=== PATIENT | female | born 1955 | race Caucasian/White ===

== ENCOUNTER → 2021-11-17 | Outpatient (CLI) | payer OTHER, MEDICARE ==
[~2021-11-17] MED LIST: CO-ENZYME Q-1010 MG PO; HYDROCHLOROTH12.5 M2 PO; LISINOPRIL2.5 MG PO; LUTEIN20 M1 PO; MILK THISTLE150 MG PO; MULTI VITAMIN1 EACH PO; POTASSIUM CHLO10 ME1 PO; VIT D3 PO; VITAMIN C500 M2 PO; VITAMIN E1000 UNIT PO
== END ==
LOC: LAB 10:05
PROVIDERS: ATTEND Student in an Organized Health Care Education/Training Program
DX: Z20.822 Contact with and (suspected) exposure to COVID-19 (principal)

== ENCOUNTER → 2021-11-18 | Outpatient (CLI) | payer OTHER, MEDICARE ==
[~2021-11-18] VITALS: Ht 172.7 cm; Wt 136.1 kg
--- NOTE | 2021-11-20 15:07 | PATH ---
[facility] [address] [place] [address] PATHOLOGY RPT PROCEDURE Name: MILANALLELY Room #: REG ASHLEY Cope.#: [id number] Admission: 11/18/21 Date of : 57 Discharge: Report #: [id number] Path Case #: [id number] [facility] Accession Number: [id number] . 01 Material submitted: . PART A: colon - ASCENDING COLON POLYP. Modifiers: ascending PART B: cecum - CECAL POLYP . 01 Clinical history: . COLONOSCOPY / HX OF POLYPS . 02 Diagnosis: A. Ascending colon polyp, polypectomy: - Tubular adenoma. - Negative for high-grade dysplasia or malignancy. . B. Cecal polyp, polypectomy: - Tubular adenoma. - Negative for high-grade dysplasia or malignancy. . (ANK:pako; 11/20/2021) MBSampson 11/20/2021 1300 Local . 02 Electronically signed: . Briana Saucedo MD, Pathologist NPI- [id number] . 01 Gross description: . A. The specimen is received in formalin, labeled "Nallely Zaragoza, ascending colon polyp". Received are 2 segments of pale lockett tissue measuring 0.2 and 0.3 cm in maximum dimensions. The specimen is entirely submitted in cassette A1. . B. The specimen is received in formalin, labeled "Nallely Zaragoza, cecal polyp". Received are 4 segments of pale lockett tissue ranging in size from 0.2-0.3 cm in maximum dimension. The specimen is entirely submitted in cassette B1. ([facility]; 11/19/2021) NRI/NRI 11/19/2021 1853 Local . 02 Pathologist provided ICD-10: D12.2, D12.0 . 02 CPT . 230334, 438309 Specimen Comment: A courtesy copy of this report has been sent to [phone], [id number] [id number] PATHOLOGY RPT PROCEDURE Name: NALLELY ZARAGOZA Room #: REG [facility]#: [id number] Admission: 11/18/21 Date of : 57 Discharge: Report #: [id number] Path Case #: [id number] Specimen Comment: [id number] Specimen Comment: Report sent to / DR THOMAS Performed at: 01 [facility] [address] [place] [address] [address], [place] [id number] MD Steven Rivas MD Phone: [phone] Performed at: [address] [id number] MD Briana Saucedo MD Phone: [phone]
--- NOTE | 2021-11-25 12:57 | P ---
[facility] [place] [address] [place] [address] PROCEDURE REPORT Name: ROMEL ZARAGOZA [id number] Admission: 11/18/21 Attend Phys: Randolph Serrano Discharge: Date of : 57 Report #: [id number] THIS REPORT FOR: cc: Gela Ellis MD, Aimee B. MD McElhinney, Christian C. MD ~ cc: Gela Ellis MD DATE OF SERVICE: 11/18/2021 PROCEDURE PERFORMED: Colonoscopy with biopsies. HISTORY OF PRESENT ILLNESS: The patient is a 66-year-old female with a history of colon polyps, last colonoscopy 6 years ago. She denies any symptoms at this time. No family history of colon cancer. Plan is for repeat colonoscopy. DESCRIPTION OF PROCEDURE: The risks and benefits of the procedure were explained to the patient, those risks including but not limited to bleeding, perforation and the risk of sedation. She understood these risks and gave informed consent. Sedation was given using propofol per anesthesia. Next, a digital rectal exam was initially performed, which was normal. Next, using a standard Olympus colonoscope, the scope was placed in the patient's anus and advanced under direct vision to the cecum. The overall prep was excellent. A 4-mm sessile polyp was noted in the cecum. This was removed with cold forceps. The ileocecal valve was normal. In the ascending colon, a 5-mm sessile polyp also removed with cold forceps, otherwise normal. The transverse, descending and sigmoid colon were normal. The rectal mucosa was normal. On retroflexion, no abnormalities were noted. The scope was then withdrawn and the procedure terminated. The patient tolerated the procedure well. IMPRESSION: 1. Two small colonic polyps. 2. Otherwise, normal colonoscopy. RECOMMENDATIONS: 1. Await biopsy results. 2. Repeat colonoscopy in 5 years. Thank you for allowing me to participate in her care. <ELECTRONICALLY SIGNED> By: Randolph Garcia MD 11/25/21 1257 0925 1039 Randolph Garcia MD /nt
== END | disposition home or self-care (01) ==
LOC: GI
PROVIDERS: ATTEND Specialist
DX: Z12.11 Encounter for screening for malignant neoplasm of colon (principal); Z86.010 Personal history of colon polyps; D12.0 Benign neoplasm of cecum; D12.2 Benign neoplasm of ascending colon; I10 Essential (primary) hypertension; K21.9 Gastro-esophageal reflux disease without esophagitis; Z98.890 Other specified postprocedural states; Z79.899 Other long term (current) drug therapy; Z90.710 Acquired absence of both cervix and uterus
CPT/HCPCS: 62110; 62900